=== PATIENT | female | born 1935 | race American Indian/Alaskan Native ===

== ENCOUNTER 2022-03-03 09:48 | Outpatient (CLI) | payer MEDICARE ==
--- NOTE | 2022-03-07 07:54 | Ultrasound Report ---
ULTRASOUND RENAL INDICATION / CLINICAL INFORMATION: N18.30. Renal failure COMPARISON: None available. FINDINGS: RIGHT KIDNEY: Length = 8.2 cm. [normal > 9 cm] - Parenchymal Thickness = 1.3 cm. [normal > 1.5 cm] - Echogenicity: Normal. - Hydronephrosis: None. - Cyst or mass: A 4.3 cm simple appearing cyst projects from the superior pole - Stones: None seen LEFT KIDNEY: Length = 9.3 cm. [normal > 9 cm] - Parenchymal Thickness = 1.0 cm. [normal > 1.5 cm] - Echogenicity: Normal. - Hydronephrosis: None. - Cyst or mass: No significant abnormality. - Stones: None seen. URINARY BLADDER: No significant abnormality. FREE FLUID: None. ADDITIONAL FINDINGS: None. IMPRESSION: Borderline to mild renal atrophy bilaterally. 4.3 cm right renal cyst. No hydronephrosis. Signer Name: Wilfrid Ken Jr, MD Signed: 03/07/2022 7:50 AM Workstation Name: [id number]
== END 2022-03-03 09:49 | disposition home or self-care (01) ==
LOC: US 09:48
PROVIDERS: ATTEND Internal Medicine Nephrology
DX: N28.1 Cyst of kidney, acquired (principal); N26.1 Atrophy of kidney (terminal); N18.30 Chronic kidney disease, stage 3 unspecified
CPT/HCPCS: 76770